=== PATIENT | female | born 1975 | race African-American/Black ===

== ENCOUNTER → 2017-01-20 | Outpatient (CLI) | payer BC ==
[2016-11-16 08:11] VITALS: BP 143/92
[2017-01-20 08:24] LABS: BASOPHILS # (AUTO) 0.1 X10^3/uL (0.0-0.1); BASOPHILS % (AUTO) 1.3 % (0.2-1.0); EOSINOPHILS # (AUTO) 0.2 x10^3/uL (0.0-0.2); EOSINOPHILS % (AUTO) 3.5 % (0.9-2.9); HEMOGLOBIN 12.9 g/dL (12.0-16.0); LYMPHOCYTES # (AUTO) 2.8 X10^3/uL (1.3-2.9); LYMPHOCYTES % (AUTO) 39.3 % (21.0-51.0); MEAN CORPUSCULAR HEMOGLOBIN 25.6 pg (27.0-34.0); MEAN CORPUSCULAR HGB CONC 32.3 g/dL (33.0-35.0); MEAN CORPUSCULAR VOLUME 79.3 fL (80.0-100.0); MEAN PLATELET VOLUME 8.8 fL (7.4-11.0); MONOCYTES # (AUTO) 0.4 x10^3/uL (0.3-0.8); MONOCYTES % (AUTO) 5.1 % (0.0-13.0); NEUTROPHILS # (AUTO) 3.6 x10^3/uL (2.2-4.8); NEUTROPHILS % (AUTO) 50.8 % (42.0-75.0); PLATELET COUNT 304 X10^3/uL (150.0-450.0); RED BLOOD COUNT 5.04 X10^6/uL (3.5-5.4); RED CELL DISTRIBUTION WIDTH 13.2 % (11.6-16.5); WHITE BLOOD COUNT 7.1 X10^3/uL (3.6-10.0)
[2017-01-20 08:36] LABS: ALANINE AMINOTRANSFERASE 27 Units/L (12-78); ALBUMIN 3.7 g/dL (3.4-5.0); ALKALINE PHOSPHATASE 82 Units/L (46-116); AMYLASE 37 Units/L (25-115); ASPARTATE AMINO TRANSFERASE 15 Units/L (15-37); BLOOD UREA NITROGEN 8 mg/dL (7-18); CALCIUM 8.9 mg/dL (8.5-10.1); CARBON DIOXIDE 25.7 mmol/L (21-32); CHLORIDE 107 mmol/L (98-107); COR NA(FOR HYPERGLY) 143 mmol/L (136-145); CREATININE 0.78 mg/dL (0.55-1.02); GLUCOSE 162 mg/dL (65-99); LIPASE 180 Units/L (73-393); SODIUM 142 mmol/L (136-145); TOTAL PROTEIN 7.4 g/dL (6.4-8.2); eGFR BLACK RACES > 60 (>60); eGFR NON BLACK RACES > 60 (>60)
[2017-01-20 08:55] LABS: PLATELET MORPHOLOGY COMMENT NORMAL (NORMAL)
== END | disposition home or self-care (01) | DRG 639 ==
LOC: LAB 07:58
PROVIDERS: ATTEND Internal Medicine Endocrinology, Diabetes & Metabolism
DX: E11.65 Type 2 diabetes mellitus with hyperglycemia (principal); Z79.4 Long term (current) use of insulin
CPT/HCPCS: 36415; 80053; 82150; 83690; 85025

== ENCOUNTER → 2017-02-27 | Outpatient (CLI) | payer BC ==
[2016-11-16 08:11] VITALS: BP 143/92
[2017-02-27 09:43] LABS: CALCIUM 9.1 mg/dL (8.5-10.1)
== END | disposition home or self-care (01) | DRG 641 ==
LOC: LAB 09:07
PROVIDERS: ATTEND Surgery
DX: E83.52 Hypercalcemia (principal); E89.0 Postprocedural hypothyroidism
CPT/HCPCS: 36415; 82310; 83735

== ENCOUNTER → 2017-03-21 | Outpatient (CLI) | payer BC ==
[2016-11-16 08:11] VITALS: BP 143/92
[2017-03-21 11:10] LABS: BASOPHILS # (AUTO) 0.1 X10^3/uL (0.0-0.1); BASOPHILS % (AUTO) 1.3 % (0.2-1.0); EOSINOPHILS # (AUTO) 0.3 x10^3/uL (0.0-0.2); EOSINOPHILS % (AUTO) 5.2 % (0.9-2.9); HEMATOCRIT 38.6 % (36.0-47.0); HEMOGLOBIN 12.5 g/dL (12.0-16.0); LYMPHOCYTES # (AUTO) 1.7 X10^3/uL (1.3-2.9); LYMPHOCYTES % (AUTO) 30.6 % (21.0-51.0); MEAN CORPUSCULAR HEMOGLOBIN 26.1 pg (27.0-34.0); MEAN CORPUSCULAR HGB CONC 32.4 g/dL (33.0-35.0); MEAN CORPUSCULAR VOLUME 80.4 fL (80.0-100.0); MEAN PLATELET VOLUME 9.2 fL (7.4-11.0); MONOCYTES # (AUTO) 0.3 x10^3/uL (0.3-0.8); MONOCYTES % (AUTO) 4.7 % (0.0-13.0); NEUTROPHILS # (AUTO) 3.3 x10^3/uL (2.2-4.8); NEUTROPHILS % (AUTO) 58.2 % (42.0-75.0); PLATELET COUNT 297 X10^3/uL (150.0-450.0); RED CELL DISTRIBUTION WIDTH 14.8 % (11.6-16.5); WHITE BLOOD COUNT 5.6 X10^3/uL (3.6-10.0)
[2017-03-21 11:23] LABS: HEMOGLOBIN A1C 9.3 % (4.5-6.2)
[2017-03-21 11:24] LABS: ALANINE AMINOTRANSFERASE 41 Units/L (12-78); ALBUMIN 4.2 g/dL (3.4-5.0); ALKALINE PHOSPHATASE 86 Units/L (46-116); ASPARTATE AMINO TRANSFERASE 27 Units/L (15-37); BLOOD UREA NITROGEN 9 mg/dL (7-18); CALCIUM 9.4 mg/dL (8.5-10.1); CHLORIDE 105 mmol/L (98-107); COR NA(FOR HYPERGLY) 142 mmol/L (136-145); CREATININE 0.95 mg/dL (0.55-1.02); GLUCOSE 169 mg/dL (65-99); MAGNESIUM 1.9 mg/dL (1.7-2.9); SODIUM 140 mmol/L (136-145); TOTAL PROTEIN 7.7 g/dL (6.4-8.2); TSH (3RD GENERATION) 58.993 uIU/mL (0.358-3.74); eGFR BLACK RACES > 60 (>60); eGFR NON BLACK RACES > 60 (>60)
[2017-03-21 11:43] LABS: ERYTHROCYTE SEDIMENTATION RATE 2 MM/HOUR (0-20)
--- NOTE | 2017-03-22 07:54 | RAD ---
HISTORY: Low back pain Study: Lumbar spine three views Comparison: None Findings: The alignment is normal. The vertebral bodies are of average height. The disc spaces are preserved. The pedicles are intact. The SI joints are normal. There is some facet degenerative joint disease at L5-S1 bilaterally. IMPRESSION: Facet degenerative joint disease L5-S1 bilaterally Reported By:
== END | disposition home or self-care (01) | DRG 552 ==
LOC: LAB 10:35
PROVIDERS: ATTEND Nurse Practitioner Family
DX: M54.5 Low back pain (principal); R53.83 Other fatigue; E89.0 Postprocedural hypothyroidism; E11.9 Type 2 diabetes mellitus without complications; M47.897 Other spondylosis, lumbosacral region
CPT/HCPCS: 36415; 72100; 80053; 83036; 83735; 84436; 84443; 85025; 85652; 86140

== ENCOUNTER 2018-01-18 08:49 | Emergency (ER) | payer SELFPAY ==
--- NOTE | 2018-01-18 08:59 | DR.GENAD ---
HPI - PCP Primary Care Physician: Timothy - Complaint/Symptoms Chief Complaint Doctors Comments: patient presentes today with complaint of back pain. She reports that her back started hurting on last night, took her medication and this AM the pain was worse. She states that she can not lift her lower extremities w/o back pain. She admits to a history of arthritis of the lower back (DJD) but the medication helps only a little PMH - PMH Past Medical History: Diabetes, Hypertension Past Medical History Comment: Thyroid Past Surgical History: Yes Surgical History: , Cholecystectomy, [employer] Surgery, Hysterectomy, Lithotripsy - Family History Family Medical History: Diabetes Mellitus, NM, Hypertension - Social History Do you use any recreational Drugs:: No ROS - Review of Systems Constitutional: No Symptoms Reported Eyes: No Symptoms Reported ENTM: No Symptoms Reported Respiratoy: No Symptoms Reported Cardiovascular: No Symptoms Reported Gastrointestinal/Abdominal: No Symptoms Reported Genitourinary: No Symptoms Reported Neurological: Tingling (lower extremities with lifting legs) Musculoskeletal: See HPI, Back Integumentary: No Symptoms Reported Hematologic/Lymphatic: No Symptoms Reported Endocrine: No Symptoms Reported Psychiatric: No Symptoms Reported All Other Systems: Reviewed and Negative PE - Vital Signs Vitals: Temperature 98.2 F Pulse Rate 85 Respiratory Rate 20 Blood Pressure [Right Arm] 137/69 Blood Pressure 190/118 O2 Sat by Pulse Oximetry 99 - General Limitations: No Limitations General Appearance: Alert, Anxious - Eyes Eye exam: Normal Appearance, PERRL, EOMI - ENT ENT Exam: Normal Exam External Ear Exam: Normal External Inspection TM/Canal Exam: Bilateral Normal Nose Exam: Normal Nose Exam Mouth Exam: Normal Inspection Throat Exam: Normal Inspection - Neck Neck Exam: Normal Inspection - Chest Chest Inspection: Normal Inspection, Symmetric Chest Wall Rise - Respiratory Respiratory Exam: Normal Lung Sounds Bilat Respiratory Exam: Bilateral Clear to Auscultation - Cardiovascular Cardiovascular Exam: Regular Rate, Normal Rhythm - Abdominal Exam Abdominal Exam: Normal Inspection, Normal Bowel Sounds Abdominal Tenderness: negative: RUQ, RLQ, LUQ, LLQ, Epigastrium, Suprapubic, Diffuse, Mild, Moderate, Severe, Other - Extremities Extremities Exam: Normal Inspection - Back Back Exam: Tenderness, (L) CVA Tenderness, (R) Straight Leg Raise, (L) Straight Leg Raise (pain low back, can lift only ~20degrees) - Neurologic Neurological Exam: Oriented X3, CN II-XII Intact - Psychiatric Psychiatric Exam: Anxious - Skin Skin Exam: Warm, Dry, Intact, Normal Color Course - Reevaluation 1st: Improved - Education/Counseling Education/Counseling: Patient Educated On: Treatment, Diagnosis, Prognosis, Needs for Follow Up ROR - Labs Reviewed Result Diagrams: 01/18/18 09:20 01/18/18 09:20 Laboratory: WBC 5.7 X10^3/uL (3.6-10.0) 01/18/18 09:20 RBC 4.80 X10^6/uL (3.5-5.4) 01/18/18 09:20 Hgb 13.1 g/dL (12.0-16.0) 01/18/18 09:20 Hct 39.1 % (36.0-47.0) 01/18/18 09:20 MCV 81.5 fL (80.0-100.0) 01/18/18 09:20 MCH 27.3 pg (27.0-34.0) 01/18/18 09:20 MCHC 33.5 g/dL (33.0-35.0) 01/18/18 09:20 RDW 13.1 % (11.6-16.5) 01/18/18 09:20 Plt Count 333 X10^3/uL (150.0-450.0) 01/18/18 09:20 MPV 9.1 fL (7.4-11.0) 01/18/18 09:20 Neut % (Auto) 58.8 % (42.0-75.0) 01/18/18 09:20 Lymph % (Auto) 30.3 % (21.0-51.0) 01/18/18 09:20 [place] % (Auto) 5.6 % (0.0-13.0) 01/18/18 09:20 Eos % (Auto) 3.3 % (0.9-2.9) H 01/18/18 09:20 Baso % (Auto) 2.0 % (0.2-1.0) H 01/18/18 09:20 Neut # (Auto) 3.3 x10^3/uL (2.2-4.8) 01/18/18 09:20 Lymph # (Auto) 1.7 X10^3/uL (1.3-2.9) 01/18/18 09:20 [place] # (Auto) 0.3 x10^3/uL (0.3-0.8) 01/18/18 09:20 Eos # (Auto) 0.2 x10^3/uL (0.0-0.2) 01/18/18 09:20 Baso # (Auto) 0.1 X10^3/uL (0.0-0.1) 01/18/18 09:20 Absolute Nucleated RBC 0.1 /100WBC 01/18/18 09:20 Sodium 139 mmol/L (136-145) 01/18/18 09:20 Corrected Sodium 142 mmol/L (136-145) 01/18/18 09:20 Potassium 3.7 mmol/L (3.5-5.1) 01/18/18 09:20 Chloride 104 mmol/L (98-107) 01/18/18 09:20 Carbon Dioxide 27.0 mmol/L (21-32) 01/18/18 09:20 BUN 8 mg/dL (7-18) 01/18/18 09:20 Creatinine 0.87 mg/dL (0.55-1.02) 01/18/18 09:20 Est GFR (MDRD) Af Amer > 60 (>60) 01/18/18 09:20 Est GFR (MDRD) Non-Af > 60 (>60) 01/18/18 09:20 Glucose 245 mg/dL (65-99) H 01/18/18 09:20 Calcium 8.7 mg/dL (8.5-10.1) 01/18/18 09:20 - XRAY XRAY Interpreted by: Radiologist (CT LS:L1-2,L2-3 no evidence of compressive disc disease; L3-4:mild symmetric circumfertial disc bulging causes mild thecal sac effacement and contributes along with mild facet arthropathy to minimal lateral recess narrowing bilaterally, L4-5:Circumferential disc bulging effaces the thecal sac and contributes along with bilateral facet arthropathy to moderate lateral recess narrowing bilaterally L5-S1:There is a comressive central disc protrusion which effaces the thecal sac. It abuts and displaces the right D5pttdl root and abuts but does not displace the left S1 nerve root. 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
[2018-01-18 09:00] VITALS: BMI 33.0
[2018-01-18] MEDS ORDERED: BENADRYL INJ 50 MG VIAL IV ONE (09:06)
[2018-01-18] MEDS ORDERED: DILAUDID INJ IVP STA (09:06)
[2018-01-18] MEDS ORDERED: BENADRYL INJ 50 MG VIAL ONE (09:16)
[2018-01-18] MEDS ORDERED: DILAUDID INJ ONE (09:17)
[2018-01-18 09:37] LABS: BLOOD UREA NITROGEN 8 mg/dL (7-18); CALCIUM 8.7 mg/dL (8.5-10.1); CHLORIDE 104 mmol/L (98-107); COR NA(FOR HYPERGLY) 142 mmol/L (136-145); CREATININE 0.87 mg/dL (0.55-1.02); SODIUM 139 mmol/L (136-145); eGFR BLACK RACES > 60 (>60); eGFR NON BLACK RACES > 60 (>60)
[2018-01-18 09:39] LABS: BASOPHILS # (AUTO) 0.1 X10^3/uL (0.0-0.1); EOSINOPHILS # (AUTO) 0.2 x10^3/uL (0.0-0.2); EOSINOPHILS % (AUTO) 3.3 % (0.9-2.9); HEMATOCRIT 39.1 % (36.0-47.0); HEMOGLOBIN 13.1 g/dL (12.0-16.0); LYMPHOCYTES # (AUTO) 1.7 X10^3/uL (1.3-2.9); LYMPHOCYTES % (AUTO) 30.3 % (21.0-51.0); MEAN CORPUSCULAR HEMOGLOBIN 27.3 pg (27.0-34.0); MEAN CORPUSCULAR HGB CONC 33.5 g/dL (33.0-35.0); MEAN CORPUSCULAR VOLUME 81.5 fL (80.0-100.0); MEAN PLATELET VOLUME 9.1 fL (7.4-11.0); MONOCYTES # (AUTO) 0.3 x10^3/uL (0.3-0.8); MONOCYTES % (AUTO) 5.6 % (0.0-13.0); NEUTROPHILS # (AUTO) 3.3 x10^3/uL (2.2-4.8); NEUTROPHILS % (AUTO) 58.8 % (42.0-75.0); PLATELET COUNT 333 X10^3/uL (150.0-450.0); RED CELL DISTRIBUTION WIDTH 13.1 % (11.6-16.5); WHITE BLOOD COUNT 5.7 X10^3/uL (3.6-10.0)
[2018-01-18 10:19] VITALS: BP 137/69
--- NOTE | 2018-01-18 11:02 | CT ---
HISTORY: Low back pain Study: CT lumbar spine without contrast Comparison: None Technique: Axial noncontrast images with coronal and sagittal reformats. Dose reduction procedures we re used with mA/kv adjusted for body size. Findings: The alignment is normal. The vertebral bodies are of average height. No compression fractures are domi ntified. The pedicles, spinous processes, and posterior elements are intact as are the visualized por tions of the sacrum and SI joints. The disc levels are evaluated as follows: L1-2 level: No evidence for compressive disc disease. The neural foramina are patent. The joints are normal. L2-3 level: No evidence for compressive disc disease. The neural foramina are patent. The joints are normal. L3-4 level: Mild symmetric circumferential disc bulging causes mild thecal sac effacement and contrib utes along with mild facet arthropathy to minimal lateral recess narrowing bilaterally. L4-5 level: Circumferential disc bulging effaces the thecal sac and contributes along with bilateral facet arthropathy to moderate lateral recess narrowing bilaterally. L5-S1 level: There is a compressive central disc protrusion which effaces the thecal sac. It abuts an d displaces the right S1 nerve root and abuts but does not displace the left S1 nerve root. It contri butes along with bilateral facet arthropathy to lateral recess and foraminal narrowing bilaterally le ft worse than right. IMPRESSION: As above Reported By:
== END 2018-01-18 11:45 | disposition home or self-care (01) ==
LOC: ER 08:54
DX: G54.9 Nerve root and plexus disorder, unspecified (principal)
CPT/HCPCS: 36415; 72131; 80048; 85025; 96365; 96374; 96375; 99283; 99284; A4222; J1170; J1200